=== PATIENT | female | born 1960 | race Caucasian/White ===

== ENCOUNTER 2018-06-21 17:14 | Emergency (ER) | payer OTHER ==
[~2018-06-21] VITALS: Wt 74.0 kg
[2018-06-21 17:35] VITALS: BP 150/61; PULSE 80; RESP 18
[2018-06-21] MEDS ORDERED: IBUP-1542 PO (18:40)
--- NOTE | 2018-06-21 18:47 | ERD ---
ER Documentation Chief Complaint Chief Complaint RIGHT ANKLE AND KNEE PAIN FROM TWISTING ON FLOOR. NO DEFORMITY NOTED HPI 58-year-old female presents with right ankle pain rating to her right tib-fib from twisting it today in the bathroom. She has restricted range of motion due to pain but no weakness or deficits. She has no bleeding or lacerations. ROS All systems reviewed and are negative except as per history of present illness. Medications Home Meds Active Scripts Ibuprofen* (Motrin*) 600 Mg Tab, 600 MG PO Q6, #20 TAB Prov:DENIS ACRE MD 06/21/18 Physical Exam Vitals Vital Signs Date Temp Pulse Resp B/P (MAP) Pulse Ox O2 O2 Flow FiO2 Time Delivery Rate 06/21/18 98.6 80 18 150/61 98 17:35 (90) Physical Exam Const: No acute distress Head: Atraumatic Eyes: Normal Conjunctiva ENT: Normal External Ears, Nose and Mouth. Neck: Full range of motion. No meningismus. Resp: Clear to auscultation bilaterally Cardio: Regular rate and rhythm, no murmurs Abd: Soft, non tender, non distended. Normal bowel sounds Skin: No petechiae or rashes Back: No midline or flank tenderness Ext: No cyanosis, or edema. Tenderness diffusely on right distal fibula bilateral ankle joint area with restricted range of motion due to pain but no deficits. No warmth, erythema or lacerations. Neur: Awake and alert Psych: Normal Mood and Affect Procedures/MDM X-ray right ankle 3V Interpreted by me: Bones: No fracture Joints: No dislocation Foreign Body: None. Impression-soft tissue swelling without fracture, dislocation, right ankle. X-ray right tib/Fib 2V Interpreted by me: Bones: No fracture Joints: No dislocation Foreign body: None impression-no acute fracture on right tib-fib x-ray Placed in right lower extremity walker boot and crutches. Patient is neurovascular intact after boot. Patient presents with right ankle pain likely sprain after twisting it today. She will discharged home with ibuprofen, instructions for primary care and orthopedic follow-up for pain next week. Patient was advised to repeat x-ray in 10-14 days for persistent pain. She is to ice and elevate at home and recheck for fevers, redness, new worsening symptoms. There is no current evidence of ischemia, deficits or infection. Departure Diagnosis: Primary Impression: Ankle injury Encounter type: initial encounter Laterality: right Qualified Codes: S99.911A - Unspecified injury of right ankle, initial encounter Condition: Stable Patient Instructions: Treating Ankle Sprains Referrals: DOCTOR,NOT ON STAFF (PCP) NELDA CLANCY MD [facility] Hours: Mon-Fri 9:00 AM - 5:00 PM Additional Instructions: Fracture seen on x-ray. Ice and elevate at home. See primary doctor and orthopedist for pain next week or 10 days. Recheck sooner for fevers, redness, new symptoms. May need authorization from primary doctor for orthopedist visit. DENIS ARCE MD Jun 21, 2018 18:46
== END 2018-06-21 18:47 | disposition home or self-care (01) ==
LOC: E/R 17:14
DX: S99.911A Unspecified injury of right ankle, initial encounter (principal); X50.1XXA Overexertion from prolonged static or awkward postures, initial encounter; Y92.003 Bedroom of unspecified non-institutional (private) residence as the place of occurrence of the external cause
CPT/HCPCS: 73590; 73610; Z7502